=== PATIENT | female | born 1975 | race African-American/Black ===

== ENCOUNTER 2017-07-18 11:41 | Emergency (ER) | payer OTHER ==
[~2017-07-18] VITALS: Ht 170.2 cm; Wt 93.2 kg
[2017-07-18 11:50] VITALS: TEMP 37; Ht 170.2 cm; Wt 93.2 kg
[2017-07-18 12:33] VITALS: O2SAT 100
[2017-07-18] MEDS ORDERED: OPTIRAY 320 IV PRN (12:45)
[2017-07-18] MEDS ORDERED: TOPI50TA16 PO (12:51)
[2017-07-18] MEDS ORDERED: SERT25TA PO (12:52)
[2017-07-18 13:01] LABS: BASO % 0.3 %; BASO ABS # 0.03 K/uL (0-0.2); EOS % 1.1 %; HEMOGLOBIN 11.2 g/dL (12.0-16.0); IG# 0.02 K/uL (0.00-0.02); LYMPH ABS # 1.13 K/uL (1.2-3.4); MEAN CELL VOLUME 95.4 fL (80-100); MEAN CORPUSCULAR HEMOGLOBIN 30.5 pg (25-34); MEAN PLATELET VOLUME 8.7 fL (7.4-10.4); MONO % 3.6 %; MONO ABS # 0.31 K/uL (0.11-0.59); NEUT % 81.8 %; NEUT ABS # 7.11 K/uL (1.4-6.5); PLATELET COUNT 360 K/uL (130-400); RED CELL DISTRIBUTION WIDTH CV 18.8 % (11.5-14.5); RED CELL DISTRIBUTION WIDTH SD 63.2 fL (36.4-46.3)
[2017-07-18] MEDS ORDERED: FENTANYL CITRATE INJ 50 MCG/1 ML 2 ML VIAL IV STA (13:08)
[2017-07-18 13:18] LABS: ALBUMIN 3.9 gm/dl (3.4-5.0); CALCIUM 8.7 mg/dl (8.5-10.1); CREATININE 0.74 mg/dl (0.60-1.20); POTASSIUM 3.7 mmol/L (3.5-5.1)
[2017-07-18 13:19] LABS: TOTAL PROTEIN 7.7 gm/dl (6.4-8.2)
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
[2017-07-18 14:30] VITALS: BP 114/99; PULSE 95; O2SAT 98
[2017-07-18] MEDS ORDERED: OXYCODONE HCL IR 5 MG TAB (IMMEDIATE RELEASE) PO STA (15:00)
[2017-07-18] MEDS ORDERED: LIDODERM (LIDOCAINE) PATCH 5% TD STA (15:00)
--- NOTE | 2017-07-18 15:02 | Medical Consult ---
Consultation Note Date of Service Jul 18, 2017. Consultation Note Consult Dictated #[id number]
[2017-07-18] MEDS ORDERED: OXYC1TAB3 PO (15:36)
[2017-07-18] MEDS ORDERED: LIDO1PAD2 TD (15:36)
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
== END 2017-07-18 15:50 | disposition home or self-care (01) ==
LOC: C.EDD 11:43
DX: S22.42XA Multiple fractures of ribs, left side, initial encounter for closed fracture (principal); S27.1XXA Traumatic hemothorax, initial encounter; S09.90XA Unspecified injury of head, initial encounter; S01.81XA Laceration without foreign body of other part of head, initial encounter; S61.411A Laceration without foreign body of right hand, initial encounter; S61.412A Laceration without foreign body of left hand, initial encounter; V43.62XA Car passenger injured in collision with other type car in traffic accident, initial encounter; Y93.89 Activity, other specified; Y92.411 Interstate highway as the place of occurrence of the external cause; F17.210 Nicotine dependence, cigarettes, uncomplicated; G40.909 Epilepsy, unspecified, not intractable, without status epilepticus; F41.9 Anxiety disorder, unspecified; Z88.5 Allergy status to narcotic agent; Z91.048 Other nonmedicinal substance allergy status; Z88.8 Allergy status to other drugs, medicaments and biological substances; Z98.84 Bariatric surgery status